=== PATIENT | male | born 1965 | race Caucasian/White ===

== ENCOUNTER 2018-11-04 16:54 | Emergency (ER) | payer SELFPAY ==
[~2018-11-04] VITALS: Ht 170.2 cm; Wt 90.0 kg
[2018-11-04 16:54] VITALS: Ht 170.2 cm; Wt 90.0 kg
[2018-11-04] MEDS ORDERED: LIDOCAINE 1% (MDV) 20 ML INJ ONE (17:28)
[2018-11-04] MEDS ORDERED: CEFAZOLIN 1 GM/50 ML (PMX) 50 ML IVPB SCH (17:30)
[2018-11-04] MEDS ORDERED: LIDOCAINE 1% (MPF) 5 ML VIAL INJ ONE (17:30)
[2018-11-04] MEDS ORDERED: morphine 10 MG INJ IV ONE ×2 (17:30→19:00)
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
[2018-11-04] MEDS ORDERED: DIPHTH/TET/ACEL PERTUSS (ADULT) 0.5 ML VIAL IM* ONE (18:00)
[2018-11-04] MEDS ORDERED: morphine 4 MG/ML VIAL IV STA (18:00)
[2018-11-04 19:08] VITALS: BP 151/102; PULSE 91; RESP 20
== END 2018-11-04 19:08 | disposition short-term general hospital (02) ==
LOC: E/R 16:54
DX: S67.22XA Crushing injury of left hand, initial encounter (principal); V49.49XA Driver injured in collision with other motor vehicles in traffic accident, initial encounter; Z23 Encounter for immunization
CPT/HCPCS: 29125; 73110; 73130; 90471; 90715; 96365; 96375; 96376; 99285; J0690; J2270